=== PATIENT | female | born 1935 | race Caucasian/White ===

== ENCOUNTER 2016-07-26 08:56 | Day surgery (SDC) | payer MEDICARE ==
[~2016-07-26 08:56] MED LIST: DIPRIVAN 200 MG/20 ML IV ONE; Decadron 4 MG INJ IV ONE; Ephedrine Sulfate 50 MG/ML IJ ONE; Quelicin Fliptop 200 MG/10 ML IJ ONE; ROBINUL IV ONE; SUBLIMAZE 100 MCG/2 ML IV ONE; TORAdol 30 mg Injection IJ ONE; Zofran 4 MG/2 ML VIAL IV ONE
[2016-07-26] MEDS ORDERED: Lactated Ringers 1,000 ML IV ONE ×2 (09:17→09:43)
[2016-07-26] MEDS ORDERED: Lactated Ringers 1,000 ML IV SCH (09:30)
[2016-07-26 09:51] LABS: BASOPHIL % 0.1 % (0.0-0.4); Eosinophil % 1.1 % (0.00-5.0); Granulocytes % 67.7 % (36.0-66.0); Lymphocytes % 20.5 % (24.0-44.0); Mean Cell Volume 103.7 fl (78-100); Mean Platelet Volume 9.5 fl (6-9.5); Monocytes % 10.6 % (0.0-12.0); Platelet Count 332 K/mm3 (150-450); Red Blood Count 3.74 M/mm3 (4.1-5.4); Red Cell Distribution Width 13.3 % (11.5-14.0); White Blood Count 8.3 K/mm3 (4.0-10.5)
[2016-07-26 09:59] LABS: Mean Corpuscular Hemoglobin 32.3 pg (26-32)
[2016-07-26 10:19] LABS: ANION GAP 11.1 MEQ/L (5-15); Carbon Dioxide 33.8 mEq/L (21-32); Potassium 3.8 mEq/L (3.5-5.1)
[2016-07-26] MEDS ORDERED: CLINDAMYCIN-D5W 600 MG/50 ML*** 50 ML IV ONE (11:08)
--- NOTE | 2016-07-26 12:44 | XRAY ---
Indication: T7, T8, T9 kyphoplasty. Intraoperative fluoroscopy was provided for 5 minutes 4 seconds. 2 digital spot images submitted for interpretation demonstrates kyphoplasty of the presumed T7/T8/T9 vertebral bodies without abnormal extravasation of cement material. Correlate with intraoperative findings/report.
--- NOTE | 2016-07-26 13:29 | OP ---
SURGERY DATE: 07/26/20161123 PREOPERATIVE DIAGNOSIS: Unstable osteopenic pathologic compression fracture of the T6 and T9. POSTOPERATIVE DIAGNOSIS: T7, T8 and T9 osteopenic pathologic compression fractures. PROCEDURES: 1) Kyphoplasty three levels T7, T8 and T9. 2) Bone biopsy T7, T8 and T9. 3) Fluoroscopy per surgeon T7, T8 and T9. SURGEON: Brandon Cai D.O. PROP SAWYER: None. ANESTHESIA: General per [employer]. ESTIMATED BLOOD LOSS: Minimal. DESCRIPTION OF PROCEDURE: The patient is taken to the operative suite and placed in supine position. Given general anesthetic, turned prone. All neurovascular areas well padded. Sterile prep and drape done. T7 and T9 were shown to be obvious levels of bone depression and conical-type superior endplate depression about 50% on both and T8 between them was starting to fade and superior endplate depression so that was treated as well. The following three will be dictated in the same manner. Cannulas were created for Care[employer]usion 2 in 1 trocar cannula into vertebral body through the pedicles starting at 10:00 and 2:00 positions and then docking ports made inside the vertebral body on the AP view the medial pedicular wall was just barely breached after the lateral entry point was established inside the vertebral body. Cannulas remained. Twist drill and coring reamers were advanced up to but not beyond the anterior shell. The coring reamer took specimens of all three levels. Balloons were inflated. Pressures to 100 to 200 mm of Mercury and then disinflated in these three levels and then bone void opacifying polymethyl methacrylate was insinuated into position with 4 cc total into the vertebral levels split between these two pedicle entry points tolerated well. Instruments removed and Ethilon sutures placed in the portal sites.
[2016-07-26 14:48] VITALS: BP 153/67; PULSE 76; O2SAT 95
== END 2016-07-26 14:30 | disposition home or self-care (01) ==
LOC: SDC 08:56
PROVIDERS: ATTEND Orthopaedic Surgery
PROC: 0PS43ZZ Reposition Thoracic Vertebra, Percutaneous Approach (ICD-10-PCS; principal; 2016-07-26)
PROC: 0PU43JZ Supplement Thoracic Vertebra with Synthetic Substitute, Percutaneous Approach (ICD-10-PCS; 2016-07-26)
PROC: 0PB43ZX Excision of Thoracic Vertebra, Percutaneous Approach, Diagnostic (ICD-10-PCS; 2016-07-26)
DX: M80.08XA Age-related osteoporosis with current pathological fracture, vertebra(e), initial encounter for fracture (principal)
CPT/HCPCS: 01936; 36415; 72291; 80048; 85025; 88311; J0330; J1100; J1885; J2405; J2704; J3010

== ENCOUNTER 2017-02-02 16:14 | Emergency (ER) | payer MEDICARE ==
[2017-02-02] MEDS ORDERED: PROTONIX 40 MG IV*** 80 MG in Sodium Chloride 0.9% 500 ML 500 ML IV SCH ×2 (16:45→17:30)
[2017-02-02] MEDS ORDERED: Sodium Chloride 0.9% 1000 ML 1,000 ML IV SCH (16:45)
[2017-02-02] MEDS ORDERED: Sodium Chloride 0.9% 1000 ML 1,000 ML ONE (16:47)
--- NOTE | 2017-02-02 16:47 | ERPHSYRPT ---
- History of Present Illness Time Seen by Provider: 02/02/17 16:18 Source: patient Exam Limitations: no limitations Patient Subjective Stated Complaint: having bright red blood in stools since last night. has had five bloody stools. denies any n/v at this time Triage Nursing Assessment: ambulated to room per self. skin w/d, pale. resp easy. abd soft, nontender. hemoocult collected and red blood noted. bowel sounds hyperactive Physician History: patient developed bright red rectal bleeding when she went to urinate last pm and farted; no prior hx; on blood thinners; no other complaints; reoccured today ; normal bm earlier- no blood; no pain';; no hx of hemrrhoids Timing/Duration: today (reoccureed), yesterday (onset), intermittent Severity: moderate Modifying Factors: Improves With: other (bowel movement) Associated Symptoms: denies symptoms Allergies/Adverse Reactions: Penicillins Allergy (Verified 07/25/16 16:22) Home Medications: Albuterol 8 gm Mdi Hfa [Ventolin Hfa MDI] 2 puff IH QID PRN PRN 07/15/16 [ History] Alprazolam 0.25 mg PO DAILY 07/15/16 [History] Alprazolam 0.25 mg [xanAX 0.25 MG] 0.25 mg PO DAILY PRN PRN 07/15/16 [ History] Atorvastatin Calcium 20 mg PO DAILY 07/15/16 [History] Carvedilol 6.25 mg PO BID 07/15/16 [History] Furosemide 20 mg PO DAILY 07/15/16 [History] Levothyroxine Sodium 88 Mcg [Synthroid 88 Mcg] 88 mcg PO DAILY 07/15/16 [ History] Nitroglycerin 0.4 mg Tablet [Nitrostat 0.4 MG Tablet] 0.4 mg SL DAILY PRN PRN 07/15/16 [History] Albuterol Sulfate [Ventolin] 5 mg IH Q4-6HPRN PRN 07/25/16 [History] Hx Tetanus, Diphtheria Vaccination/Date Given: Yes Hx Influenza Vaccination/Date Given: Yes Hx Pneumococcal Vaccination/Date Given: No - Review of Systems Constitutional: No Symptoms Eyes: No Symptoms Ears, Nose, & Throat: No Symptoms Respiratory: No Cough, No Dyspnea, No Wheezing Cardiac: No Chest Pain, No Palpitations, No Syncope Abdominal/Gastrointestinal: Hematochezia, No Abdominal Pain, No Nausea, No Vomiting, No Diarrhea Genitourinary Symptoms: No Symptoms Musculoskeletal: No Symptoms Skin: No Symptoms Neurological: No Symptoms Psychological: No Symptoms Endocrine: No Symptoms Hematologic/Lymphatic: Easy Bleeding, Easy Bruising, No Gum Bleeding Immunological/Allergic: No Symptoms - Past Medical History Pertinent Past Medical History: Yes Neurological History: Migraines ENT History: No Pertinent History Cardiac History: Angina, High Cholesterol, Hypertension, Myocardial Infarction ( [place]) Respiratory History: COPD Endocrine Medical History: Hypothyroidism Musculoskeletal History: Osteoarthritis, Osteoporosis GI Medical History: No Pertinent History History: No Pertinent History Psycho-Social History: No Pertinent History Female Reproductive Disorders: No Pertinent History Other Medical History: HIGH CHOLESTEROL,OR - Past Surgical History Past Surgical History: Yes Neuro Surgical History: No Pertinent History Cardiac: Cardiac Catheterization Respiratory: No Pertinent History Gastrointestinal: No Pertinent History Genitourinary: No Pertinent History Musculoskeletal: No Pertinent History Female Surgical History: No Pertinent History - Social History Smoking Status: Former smoker Exposure to second hand smoke: No Drug Use: none Patient Lives Alone: No Significant Family History: no pertinent family hx - Female History Hx Now: No - Nursing Vital Signs Nursing Vital Signs: Initial Vital Signs Temperature 98.1 F 02/02/17 16:21 Pulse Rate 87 02/02/17 16:21 Respiratory Rate 18 02/02/17 16:21 Blood Pressure 149/77 02/02/17 16:21 O2 Sat by Pulse Oximetry 92 L 02/02/17 16:21 Pain Scale Pain Intensity 0 - Physical Exam General Appearance: mild distress, alert, thin Eye Exam: PERRL/EOMI, eyes nml inspection, other (pale conjunctiva), No photophobia Ears, Nose, Throat Exam: normal ENT inspection, TMs normal, pharynx normal, moist mucous membranes Neck Exam: normal inspection, non-tender, supple, full range of motion, No meningismus, No JVD Respiratory Exam: normal breath sounds, lungs clear, airway intact, No chest tenderness, No respiratory distress Cardiovascular Exam: regular rate/rhythm, normal heart sounds, normal peripheral pulses, No murmur Gastrointestinal/Abdomen Exam: soft, normal bowel sounds, No tenderness, No mass , No guarding, No rebound, No organomegaly Pelvic Exam: deferred Rectal Exam: normal exam, normal rectal tone, hemorrhoids (small tag external and internal as well), blood, No mass, No black stool, No tenderness Back Exam: normal inspection, normal range of motion, No CVA tenderness, No vertebral tenderness Extremity Exam: normal inspection, normal range of motion, No louis's sign, No pedal edema Neurologic Exam: alert, oriented x 3, cooperative, 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, normal mood/affect, nml cerebellar function, nml station & gait Skin Exam: warm, dry, other (poor tugor), No normal color (pale), No rash, No petechiae Lymphatic Exam: No adenopathy SpO2 Interpretation: borderline oxygenation SpO2: 92 Oxygen Delivery: Room Air - Course Nursing assessment & vital signs reviewed: Yes Ordered Tests: Active Orders 24 hr Category Date Time Status IV Insertion STAT Care 02/02/17 16:40 Active Orthostatic Vital Signs STAT Care 02/02/17 17:22 Active CBC W DIFF Stat Lab 02/02/17 16:50 Completed CMP Stat Lab 02/02/17 16:30 Completed Occult Blood,Stool Other Stat Lab 02/02/17 16:30 Completed PROTIME WITH INR Stat Lab 02/02/17 16:30 Completed PTT Stat Lab 02/02/17 16:30 Completed Medication Summary Generic Name Dose Route Start Last Admin Trade Name Freq PRN Reason Stop Dose Admin Sodium Chloride 1,000 mls @ 100 mls/hr 02/02/17 16:45 02/02/17 16:48 Sodium Chloride 0.9% 1000 Ml IV 03/04/17 16:44 100 mls/hr .Q10H SHAHIDA Administration Pantoprazole Sodium 80 mg/ 500 mls @ 50 mls/hr 02/02/17 17:30 Sodium Chloride IV 03/04/17 17:29 .Q10H SHAHIDA Discontinued Medications Generic Name Dose Route Start Last Admin Trade Name Freq PRN Reason Stop Dose Admin Sodium Chloride Confirm 02/02/17 16:47 Sodium Chloride 0.9% 1000 Ml Administered 02/02/17 16:48 Dose 1,000 mls @ ud .ROUTE .[facility] Lab/Rad Data: Laboratory Result Diagrams 02/02/17 16:50 02/02/17 16:30 Laboratory Results 02/02/17 02/02/17 02/02/17 Range/Units 16:50 16:30 16:30 WBC 8.4 (4.0-10.5) K/mm3 RBC 3.76 L (4.1-5.4) M/mm3 Hgb 12.0 (12.0-16.0) gm/dl Hct 38.6 (35-47) % MCV 102.7 H (78-100) fl MCH 31.9 (26-32) pg MCHC 31.1 L (32-36) g/dl RDW 15.3 H (11.5-14.0) % Plt Count 258 (150-450) K/mm3 MPV 10.0 H (6-9.5) fl Gran % 76.8 H (36.0-66.0) % Lymphocytes % 11.9 L (24.0-44.0) % Monocytes % 8.9 (0.0-12.0) % Eosinophils % 1.8 (0.00-5.0) % Basophils % 0.6 (0.0-0.4) % Basophils # 0.05 (0-0.4) INR (0.8-3.0) APTT (25.3-37.0) SECONDS Sodium (136-145) mEq/L Potassium (3.5-5.1) mEq/L Chloride (98-107) mEq/L Carbon Dioxide (21-32) mEq/L Anion Gap (5-15) MEQ/L BUN (9-20) mg/dL Creatinine (0.55-1.30) mg/dl Estimated GFR ML/MIN Glucose (70-110) MG/DL Calcium (8.5-10.1) mg/dL Total Bilirubin (0.2-1.0) mg/dL AST (15-37) U/L ALT (12-78) U/L Alkaline Phosphatase (46-116) U/L Serum Total Protein (6.4-8.2) gm/dL Albumin (3.4-5.0) g/dL Stool Occult Blood POSITIVE (Negative) ABO Group A Rh Factor POSITIVE Antibody Screen NEGATIVE (NEGATIVE) 02/02/17 02/02/17 Range/Units 16:30 16:30 WBC (4.0-10.5) K/mm3 RBC (4.1-5.4) M/mm3 Hgb (12.0-16.0) gm/dl Hct (35-47) % MCV (78-100) fl MCH (26-32) pg MCHC (32-36) g/dl RDW (11.5-14.0) % Plt Count (150-450) K/mm3 MPV (6-9.5) fl Gran % (36.0-66.0) % Lymphocytes % (24.0-44.0) % Monocytes % (0.0-12.0) % Eosinophils % (0.00-5.0) % Basophils % (0.0-0.4) % Basophils # (0-0.4) INR 1.05 (0.8-3.0) APTT 27.3 (25.3-37.0) SECONDS Sodium 142 (136-145) mEq/L Potassium 4.0 (3.5-5.1) mEq/L Chloride 104 (98-107) mEq/L Carbon Dioxide 30.2 (21-32) mEq/L Anion Gap 11.3 (5-15) MEQ/L BUN 12 (9-20) mg/dL Creatinine 1.18 (0.55-1.30) mg/dl Estimated GFR 47 ML/MIN Glucose 117 H (70-110) MG/DL Calcium 9.0 (8.5-10.1) mg/dL Total Bilirubin 0.40 (0.2-1.0) mg/dL AST 21 (15-37) U/L ALT 16 (12-78) U/L Alkaline Phosphatase 55 (46-116) U/L Serum Total Protein 8.3 H (6.4-8.2) gm/dL Albumin 4.0 (3.4-5.0) g/dL Stool Occult Blood (Negative) ABO Group Rh Factor Antibody Screen (NEGATIVE) - Progress Progress: improved, re-examined (after tests) Progress Note: 02/02/17 16:46 IV started; labs ordered 02/02/17 18:02 patient tolerated orthostatics ok; BUN ok so doubt GI bleed; CBC ok; lytes ok; INR ok; probably internal hemmroids base on lab and exam 02/02/17 18:16 treatment plan and instructions given Counseled pt/family regarding: lab results, diagnosis, need for follow-up - Departure Time of Disposition: 18:17 Departure Disposition: Home Clinical Impression: Hemorrhoids Condition: Stable Critical Care Time: No Referrals: BRONWYN HOLM [Primary Care Provider] - Additional Instructions: sitz baths; vit with Fe; recheck LMD 48 hours Follow-up with family doctor as directed. Call for appointment. Return if any problems. If you smoke please stop. Call or follow up with your family doctor for assistance if you need it to stop. Please wear your seatbelt when driving. Have a nice day. Thank you for allowing us to participate in your care today. :o) Dr Tenzin Harp Prescriptions: Hydrocortisone Acetate [Anusol-Hc] 25 mg RC DAILY #10 supp.rect
[2017-02-02 17:08] LABS: BASOPHIL % 0.6 % (0.0-0.4); Eosinophil % 1.8 % (0.00-5.0); Granulocytes % 76.8 % (36.0-66.0); Lymphocytes % 11.9 % (24.0-44.0); Mean Cell Volume 102.7 fl (78-100); Mean Corpuscular Hemoglobin 31.9 pg (26-32); Monocytes % 8.9 % (0.0-12.0); Platelet Count 258 K/mm3 (150-450); Red Blood Count 3.76 M/mm3 (4.1-5.4); Red Cell Distribution Width 15.3 % (11.5-14.0); White Blood Count 8.4 K/mm3 (4.0-10.5)
[2017-02-02 17:36] LABS: INR 1.05 (0.8-3.0); PROTIME 11.7 SECONDS (9.95-12.35)
[2017-02-02 17:38] LABS: PTT 27.3 SECONDS (25.3-37.0)
[2017-02-02 17:43] LABS: ANION GAP 11.3 MEQ/L (5-15); BILIRUBIN,TOTAL 0.4 mg/dL (0.2-1.0); Carbon Dioxide 30.2 mEq/L (21-32); Total Protein 8.3 gm/dL (6.4-8.2)
[2017-02-02 18:32] VITALS: BP 179/86; PULSE 86; O2SAT 93
== END 2017-02-02 18:34 | disposition home or self-care (01) ==
LOC: ED 16:14
DX: K64.9 Unspecified hemorrhoids (principal); K62.5 Hemorrhage of anus and rectum
CPT/HCPCS: 36000; 36415; 80053; 82272; 85025; 85610; 85730; 86850; 86900; 86901; 96360; 99284